=== PATIENT | female | born 1950 | race Caucasian/White ===

== ENCOUNTER 2025-01-18 09:51 | Emergency (ER) | payer SELFPAY ==
[2025-01-18 09:58] VITALS: BP 138/100
[2025-01-18] MEDS: MOTRIN 800 MG PO (11:49)
--- NOTE | 2025-01-18 13:53 | ED.MUSCINJ ---
HPI-Injury
General
Chief Complaint: Musculo-Skeletal Complaint
Source: patient
Exam Limitations: none
Time Seen by Provider: 01/18/25 11:21
History of Present Illness-Injury
Initial Injury comments:
74-year-old female presents complaining of left wrist pain starting today. She fell exiting her house landed on her left hand and complains of left wrist pain and deformity. No head strike no neck or back pain. No other complaints at this time
Phy Exam
Physical Exam
Physical Exam:
General: Well-appearing female no acute respiratory distress musculoskeletal exam: Left wrist swollen tender slightly deformed over the distal radius. Full range of motion all fingers. Left elbow nontender. Skin is intact without abrasion or
laceration palpable radial pulse left wrist she has good sensation all fingers left hand
Injury Course
Orders/Labs/Results
Orders:
Orders
01/18/25 10:00
CR Wrist - Left Min 3 Views Urgent
Comment:
Reason For Exam: injury, pain
01/18/25 11:31
Oxycodone/Acetaminophen [Percocet 5/325] 1 tablet PO NOW STA
01/18/25 11:42
Ibuprofen [Motrin] 800 mg PO NOW STA
01/18/25 12:47
CR Wrist - Left Min 2 Views Urgent
Comment:
Reason For Exam: post reduction
01/18/25 13:55
Sling Left-Treatment ONCE
MDM/Problems Addressed
Differential Diagnosis Includes:
Mechanical fall with left wrist pain. Consider sprain versus fracture versus dislocation
Personal review of x-rays demonstrate slightly angulated and displaced distal radius fracture with associated ulnar related chip fracture.
Patient underwent hematoma block and you with use of finger traps and weight for countertraction the fracture was reduced by applying dorsal pressure and slight hyperextension then subsequent dorsal pressure. The patient was placed in a sugar-tong
splint by myself using cast padding 2 inch OCL and Philip bandages. Postreduction films demonstrated improved alignment patient is feeling better. Recommended continue open Motrin or Tylenol at home. Stable for discharge with orthopedic follow-up
*Critical Care Note
Total Time (30-74mins, 75-104mins- exclusive of procedures): Not Applicable
ED Attending Note
-
Portions of this chart may have been created with voice recognition software.� Occasional wrong word or��sound alike� substitutions may have occurred due to the inherent limitations of voice recognition software.
Discharge Plan
Departure
Patient Disposition: Home (Routine Discharge)
Date of Disposition: 01/18/25
Time of Disposition: 13:55
Patient with high blood pressure during this ER visit?: No
Discharge Problem:
Distal radius fracture, left
Instructions: Muscle and Bone Pain (DC)
Referrals:
Immanuel Montes De Oca MD [Active] -
UNKNOWN,NO INTERVIEW [Family Provider] -
Activity Restrictions/Additional Instructions:
Keep splint on and dry. Use sling for support. Take ibuprofen and Tylenol for pain. Follow-up with orthopedics for further evaluation
Interventions
Interventions:
*Risk Screen - Suicide Last Done: 01/18/25 09:58
*General Assessment Last Done: 01/18/25 09:58
*Neglect/Abuse Screening Last Done: 01/18/25 09:58
*ED COVID-19 Vaccine History Last Done: 01/18/25 09:58
ED-Musculoskeletal Assessment Last Done: 01/18/25 11:23
Discharge Date and Time
Print Language: BURMESE
== END 2025-01-18 14:16 | disposition home or self-care (01) ==
LOC: EMR 09:51
PROVIDERS: EMERGENCY PHYSICIAN Emergency Medicine
DX: S52.502D Unspecified fracture of the lower end of left radius, subsequent encounter for closed fracture with routine healing (principal); S52.612A Displaced fracture of left ulna styloid process, initial encounter for closed fracture; W19.XXXA Unspecified fall, initial encounter
CPT/HCPCS: 25605; 99283; 73100; 73110